=== PATIENT | male | born 1955 | race Two or more races ===

== ENCOUNTER 2021-04-27 05:56 | Day surgery (SDC) | payer OTHER ==
[~2021-04-27 05:56] MED LIST: AMBIEN10 MG PO; RELAFE PO; TRAMAD PO
== END 2021-04-27 13:20 | disposition home or self-care (01) ==
LOC: CIR.AMB 05:56
PROVIDERS: ATTEND Surgery Surgery of the Hand
DX: M65.841 Other synovitis and tenosynovitis, right hand (principal); M65.331 Trigger finger, right middle finger

== ENCOUNTER 2023-08-29 05:53 | Day surgery (SDC) | payer OTHER ==
[~2023-08-29 05:53] MED LIST changes: +COZAAR50 MG PO; +TYLENOL ARTHRI650 MG PO; +[UNRECOGNIZED DRUG - OTHER]
[2023-08-29] MEDS ORDERED: CEFAZOLIN SODIUM 1,000 MG VIAL ONE (09:19)
[2023-08-29] MEDS ORDERED: CEFAZOLIN SODIUM 1,000 MG VIAL IV ONE (11:15)
== END 2023-08-29 13:00 | disposition home or self-care (01) ==
LOC: CIR.AMB 05:53
PROVIDERS: ATTEND Surgery Surgery of the Hand
DX: M67.844 Other specified disorders of tendon, left hand (principal); Z20.822 Contact with and (suspected) exposure to COVID-19; Z91.013 Allergy to seafood; Z88.6 Allergy status to analgesic agent

== ENCOUNTER 2025-06-17 06:00 | Day surgery (SDC) | payer OTHER ==
[2025-06-09 12:43] VITALS: BP 146/82
[~2025-06-17] VITALS: Ht 157.5 cm; Wt 77.1 kg
[2025-06-17] MEDS ORDERED: LIDOCAINE HCL 1% 20 ML VIAL IJ ONE (07:51)
[2025-06-17] MEDS ORDERED: CHLORHEXIDINE GLUCONATE 120 ML BOTTLE TOP ONE (08:08)
[2025-06-17] MEDS ORDERED: CEFAZOLIN SODIUM 1,000 MG VIAL ONE (08:09)
== END 2025-06-17 10:15 | disposition home or self-care (01) ==
LOC: CIR.AMB 06:00
PROVIDERS: ATTEND Surgery Surgery of the Hand
DX: M67.844 Other specified disorders of tendon, left hand (principal)